=== PATIENT | male | born 1980 | race Caucasian/White ===

== ENCOUNTER 2017-11-16 17:23 | Observation (INO) | payer BC, OTHER ==
[~2017-11-16] VITALS: Ht 167.6 cm; Wt 144.1 kg
[~2017-11-16 17:23] MED LIST: LISI40TA PO; PROP20TA PO; SPIR25TA3 PO
[2017-11-16] MEDS ORDERED: ASPIRIN 81 MG TABLET CHEW PO ONE (18:00)
[2017-11-16 18:09] LABS: BASOPHILS # (AUTO) 0.06 x10^3/uL (0-0.1); BASOPHILS % (AUTO) 1 % (0-1); EOSINOPHILS # (AUTO) 0.28 x10^3/uL (0-0.4); EOSINOPHILS % (AUTO) 3 % (1-7); LYMPHOCYTES # (AUTO) 2.04 x10^3/uL (1-3.4); LYMPHOCYTES % (AUTO) 19 % (22-44); MD NO; MEAN CORPUSCULAR HEMOGLOBIN 27.7 pg (27.5-34.5); MEAN CORPUSCULAR HGB CONC 33.6 g/dL (33.2-36.2); MEAN CORPUSCULAR VOLUME 82.6 fL (81-97); MEAN PLATELET VOLUME 8.9 fL (7.4-10.4); MONOCYTES % (AUTO) 9 % (2-9); NEUTROPHILS # (AUTO) 7.61 x10^3/uL (1.8-6.8); NEUTROPHILS % (AUTO) 69 % (42-75); PLATELET COUNT 285 x10^3/uL (130-400); RED BLOOD COUNT 5.71 x10^6/uL (4.38-5.82); RED CELL DISTRIBUTION WIDTH 14.5 % (9.4-14.8)
[2017-11-16 18:22] LABS: ALANINE AMINOTRANSFERASE 34 U/L (12-78); ALBUMIN 3.7 g/dL (3.4-5.0); ANION GAP 7 mmol/L (5-15); CALCIUM 8.4 mg/dL (8.5-10.1); CHLORIDE 103 mmol/L (98-107); CREATININE 0.99 mg/dL (0.7-1.3)
[2017-11-16 18:27] LABS: ALKALINE PHOSPHATASE 95 U/L (45-117); BILIRUBIN,TOTAL 0.3 mg/dL (0.2-1.0); TOTAL PROTEIN 7.8 g/dL (6.4-8.2); TROPONIN I < 0.015 ng/mL (0.000-0.045)
[2017-11-16] MEDS ORDERED: hydrALAzine 20 MG/ML, 1ML IV ONE (18:30)
[2017-11-16] MEDS ORDERED: hydrALAzine 20 MG/ML, 1ML ONE (18:34)
[2017-11-16] MEDS ORDERED: ASPIRIN 81 MG TABLET CHEW ONE (18:35)
[2017-11-16] MEDS ORDERED: NITROGLYCERIN OINT 2%, 1GM TP ONE ×2 (19:21→19:30)
[2017-11-16] MEDS ORDERED: SODIUM CHLORIDE FLUSH 10ML SYR IVF PRN (20:00)
[2017-11-16] MEDS: PROPRANOLOL 20 MG TABLET PO SCH (21:00)
[2017-11-16] MEDS ORDERED: ENALAPRILAT 1.25 MG/ML, 2ML IVPush PRN (21:00)
[2017-11-16] MEDS ORDERED: DOCUSATE 100 MG CAPSULE PO PRN (21:00)
[2017-11-16] MEDS ORDERED: ACETAMINOPHEN 325 MG TABLET PO PRN (21:00)
[2017-11-16] MEDS ORDERED: TEMAZEPAM 15 MG CAPSULE PO PRN (21:00)
[2017-11-16] MEDS: LISINOPRIL 20 MG TABLET PO SCH (21:00)
[2017-11-16] MEDS ORDERED: ONDANSETRON ODT 4 MG PO PRN (21:00)
[2017-11-16] MEDS ORDERED: NITROGLYCERIN 0.4 MG BOTTLE (25 TABS) SL PRN (21:00)
[2017-11-16] MEDS ORDERED: hydrALAzine 20 MG/ML, 1ML IVPush PRN (21:00)
[2017-11-16 23:47] VITALS: BP 150/93
[2017-11-17] VITALS (8 sets, daily range): BP systolic 157–174; BP diastolic 79–130
[2017-11-17 02:00] LABS: TROPONIN I < 0.015 ng/mL (0.000-0.045)
[2017-11-17 06:17] LABS: TROPONIN I < 0.015 ng/mL (0.000-0.045)
[2017-11-17] MEDS ORDERED: REGADENOSON 0.4 MG/5 ML SYRINGE ONE (08:23)
[2017-11-17] MEDS ORDERED: AMLO10TA4 PO (08:57)
[2017-11-17] MEDS ORDERED: AMLODIPINE 5 MG TABLET PO SCH (09:00)
[2017-11-17] MEDS: PROPRANOLOL 20 MG TABLET PO SCH (10:32)
[2017-11-17] MEDS: LISINOPRIL 20 MG TABLET PO SCH (10:32)
[2017-11-17] MEDS ORDERED: HYDR-3343 PO (18:08)
== END 2017-11-17 18:50 | disposition home or self-care (01) ==
LOC: ED 20:45 → EDIP 20:49 → 4EST 23:27
PROVIDERS: ADMIT Hospitalist; ATTEND Hospitalist
DX: R07.89 Other chest pain (principal); I10 Essential (primary) hypertension; I16.0 Hypertensive urgency; E66.01 Morbid (severe) obesity due to excess calories; D72.829 Elevated white blood cell count, unspecified; Z80.1 Family history of malignant neoplasm of trachea, bronchus and lung; Z82.49 Family history of ischemic heart disease and other diseases of the circulatory system
CPT/HCPCS: 36415; 71045; 78452; 80053; 83690; 84484; 85025; 93005; 93017; 96374; 96376; 99285; A9502; C9898; G0378; J0360; J2785